=== PATIENT | male | born 1965 | race Caucasian/White ===

== ENCOUNTER 2017-07-14 21:45 | Emergency (ER) | payer OTHER ==
[~2017-07-14] VITALS: Ht 177.8 cm; Wt 79.4 kg
[~2017-07-14 21:45] MED LIST: CEPHALEXIN500 MG ORAL; CLINDAMYCIN HC300 MG ORAL; ERYTHROMYCIN1 G1 LEFT EYE; FENOFIBRATE 13134 MG ORAL; HYDROCHLOROTHIA25 MG ORAL; KLONOPIN1 MG ORAL
[2017-07-14] MEDS ORDERED: Morphine Sulfate 4mg/ml Inj IVP ONE (22:00)
--- NOTE | 2017-07-14 22:03 | Emergency Room Report ---
History of Present Illness General Chief Complaint: Abdominal Pain Source: Patient Present Illness HPI Is a 52-year-old male with a history of anxiety and mitral valve prolapse. He presents with chief complaint of acute onset of left flank pain. Onset yesterday afternoon. Pain was severe. Radiate to the left lower caught her and area. Has nausea initially. No vomiting. It went away but now came back. Has urinary frequency and cloudiness. No hematuria. Some is symptom a few years ago but never went to a doctor. No family history of kidney stone. Pain is 9/10. The demented better. Nothing made it worse. Allergies: Coded Allergies: SULFA (SULFONAMIDE ANTIBIOTICS) (Verified Allergy, Unknown, 07/14/17) Uncoded Allergies: SULFA (Allergy, Unknown, 05/12/15) Patient History Past Medical History: see triage record, old chart reviewed, psych hx Past Surgical History: other Pertinent Family History: none Social History: Denies: smoking Immunizations: other Reviewed Nursing Documentation: PMH: Agreed, PSxH: Agreed Nursing Documentation-PMH Hx Cardiac Problems: Yes - Rheumatic mitral valve disease Hx Hypertension: Yes - Heart valve problem Review of Systems Eye: Denies: eye pain, blurred vision ENT: Denies: ear pain, nose congestion, throat swelling Respiratory: Denies: cough, shortness of breath Cardiovascular: Denies: chest pain, palpitations Gastrointestinal: Reports: abdominal pain, nausea, Denies: diarrhea, vomiting Musculoskeletal: Denies: back pain, joint pain Skin: Denies: rash Neurological: Denies: headache, numbness Endocrine: Denies: increased thirst, increased urine Hematologic/Lymphatic: Denies: easy bruising All Other Systems: negative except mentioned in HPI Physical Exam Vital Signs Date Time Temp Pulse Resp B/P (MAP) Pulse Ox O2 Delivery O2 Flow Rate FiO2 07/14/17 21:50 98.6 134 18 178/105 98 Room Air vitals with tachycardia and high blood pressure Sp02 EP Interpretation: reviewed, normal General Appearance: well appearing, no apparent distress, alert Head: normocephalic, atraumatic Eyes: bilateral eye PERRL, bilateral eye EOMI ENT: hearing grossly normal, normal pharynx Neck: full range of motion, supple, no meningismus Respiratory: chest non-tender, lungs clear, normal breath sounds Cardiovascular #1: regular rate, rhythm, no murmur, systolic murmur Gastrointestinal: normal bowel sounds, no mass, no organomegaly, no bruit, non- distended, tenderness - Mild left low quadrant Musculoskeletal: back normal, gait/station normal, normal range of motion Psychiatric: anxious Skin: warm/dry Medical Decision Making Diagnostic Impression: Primary Impression: Ureteral stone with hydronephrosis ER Course Patient presents with kidney stone at the UVJ junction. Because of the perinephric stranding, we'll put on antibiotics. No evidence of sepsis. No evidence of acute abdomen. Pain well controlled now. CT/MRI/US Diagnostic Results CT/MRI/US Diagnostic Results : Imaging Test Ordered: CT abdomen and pelvis Impression Read by radiologist. 4 mm obstructing left UVJ stone with mild hydronephrosis and perinephric stranding. Last Vital Signs Date Time Temp Pulse Resp B/P (MAP) Pulse Ox O2 Delivery O2 Flow Rate FiO2 07/14/17 21:50 98.6 134 18 178/105 98 Room Air Status: improved Disposition: HOME, SELF-CARE Condition: Stable Scripts Tamsulosin Hcl (TAMSULOSIN HCL*) 0.4 Mg Cap.er.24h 0.4 MG ORAL BEDTIME, #14 CAP Prov: WEN FLORES M.D. 07/14/17 Cephalexin* (KEFLEX*) 500 Mg Capsule 500 MG ORAL TID, #21 CAP 0 Refills Prov: WEN FLORES M.D. 07/14/17 Hydrocodone/Acetaminophen 5-325* (HYDROCODONE/ACETAMINOPHEN 5-325*) 1 Each Tablet 1 TAB ORAL Q6H Y for For Pain, #30 TAB 0 Refills Prov: WEN FLORES M.D. 07/14/17 Additional Instructions: Followup with your DrMars for referral to see a urologist. Followup in a week. Return if symptom worsen. WEN FLORES M.D. Jul 14, 2017 22:03
[2017-07-14 22:31] LABS: APPEARANCE,URINE SLIGHTLY CLOUDY; COLOR,URINE AMBER; GLUCOSE, URINE (UA) NEGATIVE (NEGATIVE); KETONES,URINE NEGATIVE (NEGATIVE); PROTEIN,URINE 3+ (NEGATIVE)
[2017-07-14 22:32] LABS: BILIRUBIN, URINE NEGATIVE (NEGATIVE); LEUKOCYTE ESTERASE ,URINE NEGATIVE (NEGATIVE); NITRITE,URINE NEGATIVE (NEGATIVE); UROBILINOGEN,URINE NORMAL MG/DL (0.0-1.0)
[2017-07-14 22:32] LABS: ANION GAP 11 mmol/L (5-15); BASOPHILS % (AUTO) 0.6 % (0.0-2.0); BLOOD UREA NITROGEN 25 mg/dL (7-18); CALCIUM 9.1 MG/DL (8.5-10.1); CARBON DIOXIDE 25 MMOL/L (21-32); CHLORIDE 104 MMOL/L (98-107); CREATININE 2.1 MG/DL (0.55-1.30); EOSINOPHILS % (AUTO) 0.3 % (0.0-3.0); HEMATOCRIT 49.4 % (42.0-52.0); HEMOGLOBIN 16.7 G/DL (14.2-18.0); LYMPHOCYTES % (AUTO) 9.6 % (20.0-45.0); MEAN CORPUSCULAR VOLUME 88 FL (80-99); MONOCYTES % (AUTO) 8.1 % (1.0-10.0); NEUTROPHILS % (AUTO) 81.4 % (45.0-75.0); PLATELET COUNT 205 K/UL (150-450); POTASSIUM 3.8 MMOL/L (3.5-5.1); RED BLOOD COUNT 5.61 M/UL (4.70-6.10); RED CELL DISTRIBUTION WIDTH 11.6 % (11.6-14.8); SODIUM 140 MMOL/L (136-145); WHITE BLOOD COUNT 12.5 K/UL (4.8-10.8)
[2017-07-14] MEDS ORDERED: cefTRIAXone 1 GM in NS 55 ML IVPB ONE (23:15)
[2017-07-14] MEDS ORDERED: TAMSULOSIN HCL0.4 MG ORAL (23:21)
[2017-07-14] MEDS ORDERED: KEFLEX500 MG ORAL (23:21)
[2017-07-14] MEDS ORDERED: HYDROCODON-ACE1 EA15 ORAL (23:21)
[2017-07-15 00:18] VITALS: BP 128/66
[2017-07-15 00:19] VITALS: BP 128/66
--- NOTE | 2017-07-15 12:12 | Diagnostic Imaging Report ---
Indication: Left flank pain Technique: CT of the abdomen and pelvis utilizing automated exposure control without intravenous or oral contrast. CT dose: Total DLP 726.71 mGycm; CTDI vol 12.1 mGy Comparison: None Findings: Please note that evaluation of the abdominal and pelvic viscera is limited without the use of intravenous and oral contrast. Within these limitations, the following observations are made: Dependent atelectasis noted in the lung bases. Heart is borderline enlarged. There is trace pericardial fluid. There is diffusely decreased hepatic attenuation likely reflective of hepatic steatosis. No focal liver lesion is appreciated on this noncontrast study. Liver contour appears smooth. Possible layering sludge in the gallbladder. Spleen, adrenal glands and pancreas are grossly unremarkable. A 3 mm stone at the left ureterovesicular junction results in mild left-sided hydroureteronephrosis and left-sided perinephric stranding. No urinary tract stone or hydronephrosis seen on the right. The bladder is decompressed with bladder wall thickening likely related to underdistention. There is no bowel obstruction. No abnormal bowel wall thickening or perienteric inflammatory change. No free intraperitoneal air. Appendix is normal. Abdominal aorta normal in caliber. No pathologically enlarged lymphadenopathy. There are degenerative changes in the spine. No acute osseous abnormality is seen. There is a tiny fat-containing umbilical hernia. IMPRESSION: 3 mm stone at the left ureterovesicular junction resulting in mild left-sided hydroureteronephrosis and left-sided perinephric stranding. Underdistention versus thickening of the bladder wall. Correlate with urinalysis. Hepatic steatosis. Questionable gallbladder sludge. Consider dedicated ultrasound for better evaluation as clinically indicated. Additional findings as above. This corresponds with the statrad preliminary report. The CT scanner at [facility] is accredited by the [employer] and the scans are performed using protocols designed to limit radiation exposure to as low as reasonably achievable to attain images of sufficient resolution adequate for diagnostic evaluation.
== END 2017-07-15 00:20 | disposition home or self-care (01) ==
LOC: EMR 22:12
DX: N13.2 Hydronephrosis with renal and ureteral calculous obstruction (principal); K76.0 Fatty (change of) liver, not elsewhere classified; Z88.2 Allergy status to sulfonamides; I10 Essential (primary) hypertension; I05.8 Other rheumatic mitral valve diseases
CPT/HCPCS: 36415; 74176; 80048; 81003; 85025; 96361; 96365; 96375; 99284; J0696; J2270; J2405

== ENCOUNTER 2018-08-19 02:26 | Emergency (ER) | payer OTHER ==
[~2018-08-19] VITALS: Ht 175.3 cm; Wt 79.4 kg
[~2018-08-19 02:26] MED LIST changes: +HYDROCODON-ACE1 EA15 ORAL; +KEFLEX500 MG ORAL; +TAMSULOSIN HCL0.4 MG ORAL
[2018-08-19 02:30] VITALS: BP 138/89
--- NOTE | 2018-08-19 02:30 | NUR ---
ED Nurse Note: Patient walked into ED c/o "really bad cough" that has been going on for 1 week now. Patient presents with 100.7 temp at triage
[2018-08-19] MEDS ORDERED: GUAIFENESIN-CO118 M1 ORAL (03:49)
[2018-08-19] MEDS ORDERED: AMOXICILLIN500 MG ORAL (03:49)
[2018-08-19] MEDS ORDERED: Albuterol/Ipratropium 3ml neb HHN ONE (04:45)
[2018-08-19 05:00] VITALS: BP 138/89
--- NOTE | 2018-08-19 05:00 | NUR ---
ED Nurse Note: Patient cleared cleared for discharge per ERMD. AO4. NAD. VSS. Patient given prescriptions and discharge instructions; verbalized understanding. ID removed. Patient ambulated steady out of ED with all belongings.
--- NOTE | 2018-08-19 11:12 | Diagnostic Imaging Report ---
Indication: Shortness of breath Technique: One view of the chest Comparison: none Findings: Heart is enlarged. The lungs and pleural spaces are clear. Impression: Cardiomegaly. No acute process
--- NOTE | 2018-08-23 16:07 | Emergency Room Report ---
History of Present Illness General Chief Complaint: Upper Respiratory Illness Source: Patient Present Illness HPI Patient is a 53-year-old male brings presented for increased cough and congestion. Patient had been having having increased nasal congestion associated with nonproductive cough. Patient denies any fever. He reports having prior history of bronchitis. Patient reports having some low-grade temperature. Allergies: Coded Allergies: SULFA (SULFONAMIDE ANTIBIOTICS) (Verified Allergy, Unknown, 07/14/17) Uncoded Allergies: SULFA (Allergy, Unknown, 05/12/15) Patient History Past Medical History: see triage record Reviewed Nursing Documentation: PMH: Agreed; PSxH: Agreed Nursing Documentation-PMH Past Medical History: No History, Except For Hx Cardiac Problems: Yes - Rheumatic mitral valve disease Hx Hypertension: Yes - Heart valve problem Review of Systems All Other Systems: negative except mentioned in HPI Physical Exam General Appearance: well appearing, no apparent distress, alert, GCS 15 Head: normocephalic, atraumatic ENT: hearing grossly normal, normal voice Neck: full range of motion, supple Respiratory: lungs clear, no respiratory distress, speaking full sentences Cardiovascular #1: normal inspection, regular rate, rhythm, no edema, no gallop Gastrointestinal: normal inspection Musculoskeletal: normal inspection, back normal, no calf tenderness Neurologic: normal gait Psychiatric: mood/affect normal Skin: no rash Medical Decision Making Diagnostic Impression: Primary Impression: Viral upper respiratory infection ER Course Patient presented for cough. Differential diagnosis include was not limited to bronchitis, pneumonia, asthma exacerbation among others. Patient has a benign exam and does not appear to require laboratory testing at this time. Patient was given a breathing treatment.Patient given medication for symptomatic treatment.Influenza study was noted to be negative. Patient was given prescription for amoxicillin due to dental infection and prior history of valvular heart disease. Patient was given prescription for medications for cough. He was advised to recheck with his primary care physician in 1-2 days. Status: improved Disposition: HOME, SELF-CARE Condition: Stable Scripts Guaifenesin/Codeine Phos* (ROBITUSSIN AC*) 118 Ml Liquid 1 TSP ORAL Q6H PRN for For Cough, #118 ML 0 Refills Prov: New Gonzalez MD 08/19/18 Amoxicillin* (AMOXIL*) 500 Mg Capsule 500 MG ORAL THREE TIMES A DAY, #21 CAP Prov: New Gonzalez MD 08/19/18 Patient Instructions: Cough, Adult New Gonzalez MD Aug 23, 2018 16:07
== END 2018-08-19 05:00 | disposition home or self-care (01) ==
LOC: EMR 03:15
DX: J06.9 Acute upper respiratory infection, unspecified (principal); B34.9 Viral infection, unspecified; Z88.2 Allergy status to sulfonamides
CPT/HCPCS: 71045; 86710; 94640; 99284; J7620

== ENCOUNTER 2018-08-23 23:01 | Emergency (ER) | payer OTHER ==
[~2018-08-23] VITALS: Ht 175.3 cm; Wt 79.4 kg
[~2018-08-23 23:01] MED LIST changes: +AMOXICILLIN500 MG ORAL; +GUAIFENESIN-CO118 M1 ORAL
--- NOTE | 2018-08-23 23:16 | NUR ---
ED Nurse Note: pt came to ed from home c/o of cough, per pt he was her 08/19/18, and has recurring symptoms pt wants to follow up pt has pain on ribs due to coughing
[2018-08-23 23:21] VITALS: BP 126/86
[2018-08-23] MEDS ORDERED: PREDNISONE20 MG ORAL (23:29)
[2018-08-23] MEDS ORDERED: PROMETHAZINE-C118 M1 ORAL (23:29)
[2018-08-23] MEDS ORDERED: ALBUTEROL SULF8.5 GM INH (23:29)
[2018-08-23 23:35] VITALS: BP 126/86
--- NOTE | 2018-08-23 23:35 | NUR ---
ER DISCHARGE NOTE: Patient is cleared to be discharged per ERMD, pt is aox4, on room air, with stable vital signs. pt was given dc and prescription instructions, pt was able to verbalize understanding, pt id band removed. pt is able to ambulate with steady gait. pt took all belongings.
--- NOTE | 2018-08-24 00:49 | Emergency Room Report ---
History of Present Illness General Chief Complaint: Upper Respiratory Illness Source: Patient Present Illness HPI 53-year-old male presents ED for evaluation. Patient is complaining of cough and congestion. States he was seen here on 08/19 with same problem. Was discharged with antibiotics and cough medication. States that his cough is persisting. Now notes whitish phlegm. Denies fevers or chills. Denies smoking. Notes prior history of bronchitis. Denies sick contacts or recent travel. No other aggravating relieving factors. Denies any other associated symptoms Allergies: Coded Allergies: SULFA (SULFONAMIDE ANTIBIOTICS) (Verified Allergy, Unknown, 07/14/17) Uncoded Allergies: SULFA (Allergy, Unknown, 05/12/15) Patient History Past Medical History: CAD, psych hx Past Surgical History: none Pertinent Family History: none Social History: Denies: smoking, alcohol use, drug use Immunizations: UTD Reviewed Nursing Documentation: PMH: Agreed; PSxH: Agreed Nursing Documentation-PMH Hx Cardiac Problems: Yes - Rheumatic mitral valve disease Hx Hypertension: Yes - Heart valve problem History Of Psychiatric Problem: Yes - panic disorder Review of Systems All Other Systems: negative except mentioned in HPI Physical Exam Vital Signs Date Time Temp Pulse Resp B/P (MAP) Pulse Ox O2 Delivery O2 Flow Rate FiO2 08/23/18 23:09 98.2 81 16 126/86 96 Room Air Sp02 EP Interpretation: reviewed, normal General Appearance: no apparent distress, alert, GCS 15, non-toxic Head: normocephalic, atraumatic Eyes: bilateral eye normal inspection, bilateral eye PERRL ENT: hearing grossly normal, normal pharynx, no angioedema, normal voice Neck: full range of motion, supple/symm/no masses Respiratory: chest non-tender, lungs clear, normal breath sounds, speaking full sentences Cardiovascular #1: regular rate, rhythm, no edema Cardiovascular #2: 2+ carotid (R), 2+ carotid (L), 2+ radial (R), 2+ radial (L) , 2+ dorsalis pedis (R), 2+ dorsalis pedis (L) Gastrointestinal: normal bowel sounds, non tender, soft, non-distended, no guarding, no rebound Rectal: deferred Genitourinary: normal inspection, no CVA tenderness Musculoskeletal: back normal, gait/station normal, normal range of motion, non- tender Neurologic: alert, oriented x3, responsive, motor strength/tone normal, sensory intact, speech normal Psychiatric: judgement/insight normal, memory normal, mood/affect normal, no suicidal/homicidal ideation Reflexes: 3+ bicep (R), 3+ bicep (L), 3+ tricep (R), 3+ tricep (L), 3+ knee (R) , 3+ knee (L) Skin: normal color, no rash, warm/dry, well hydrated Lymphatic: no adenopathy Medical Decision Making Diagnostic Impression: Primary Impression: Bronchitis ER Course Hospital Course 53-year-old male presents to ED complaining of cough, congestion. seen here on for same thing Differential diagnoses include: URI, pharyngitis, otitis media, asthma Clinical course Patient placed on stretcher. After initial history, physical exam reveals a middle aged male in no acute distress. Bilateral TM unremarkable. No pharyngeal erythema. No tonsillar exudates. No lymphadenopathy. lungs clear. abdomen soft. Afebrile. Nontoxic appearing. I suspect bronchitis. Patient had been prescribed amoxicillin for a tooth infection. I explained to the patient that he could theoretically benefit if there was a suspicion for atypical pneumonia Explained to the patient that he needs to continue the antibiotics as prescribed. We'll add an inhaler, steroids. We'll change cough medications to promethazine with codeine Safe for discharge or close outpatient follow-up. We'll provide referrals Diagnosis - bronchitis Stable and discharged home with Rx albuterol, prednisone, proemthazine/codeine. Continue amoxicillin as prescribed. Instructed to followup with PMD. Return to ED if symptoms recur or worsen Last Vital Signs Date Time Temp Pulse Resp B/P (MAP) Pulse Ox O2 Delivery O2 Flow Rate FiO2 08/23/18 23:35 98.2 81 16 126/86 96 Room Air Status: improved Disposition: HOME, SELF-CARE Condition: Stable Scripts Codeine/Promethazine Hcl* (PROMETHAZINE-CODEINE SYRUP*) 118 Ml Syrup 5 ML ORAL Q6H PRN for For Cough, #118 ML 0 Refills Prov: Jesus Kramer MD 08/23/18 Albuterol Sulfate* (ALBUTEROL SULFATE MDI*) 8.5 Gm Hfa.aer.ad 2 PUFF INH Q6H, #1 EA 0 Refills Prov: Jesus Kramer MD 08/23/18 Prednisone* (PREDNISONE*) 20 Mg Tablet 40 MG ORAL DAILY, #10 TAB Prov: Jesus Kramer MD 08/23/18 Referrals: DAKOTA PATTON,REFERRING (PCP) [facility] Patient Instructions: Acute Bronchitis, [id number] Additional Instructions: discontinue robitussin, start promethazine with codeine for your cough Jesus Kramer MD Aug 24, 2018 00:49
== END 2018-08-23 23:55 | disposition home or self-care (01) ==
LOC: EMR 23:52
DX: J40 Bronchitis, not specified as acute or chronic (principal); I05.9 Rheumatic mitral valve disease, unspecified
CPT/HCPCS: 99283

== ENCOUNTER 2020-04-02 06:32 | Emergency (ER) | payer OTHER ==
[~2020-04-02] VITALS: Ht 175.3 cm; Wt 79.4 kg
[~2020-04-02 06:32] MED LIST changes: +ALBUTEROL SULF8.5 GM INH; +PREDNISONE20 MG ORAL; +PROMETHAZINE-C118 M1 ORAL
[2020-04-02 06:51] VITALS: BP 140/97
--- NOTE | 2020-04-02 06:51 | NUR ---
ED Nurse Note: pt walked into ED from home c/o right eye pain and redness that started a few days ago, pt reports history of styes and eye infection. Pt denies blurry vision, trauma to the eye, or debri getting into eye.
[2020-04-02] MEDS ORDERED: ERYTHROMYCIN3.5 GM RIGHT EYE (06:59)
[2020-04-02] MEDS ORDERED: HYDROcodone/Acetamin 5/325 tab ORAL ONE (07:00)
--- NOTE | 2020-04-02 07:05 | Emergency Room Report ---
History of Present Illness General Chief Complaint: Eye Problems Source: Patient Present Illness HPI Patient is a 55-year-old male past medical history of anxiety and mitral valve regurgitation who presents to the ER complaining of a stye to his right eye. Patient states that he noticed the redness and swelling to his right lower eyelid several days ago. He states that he is a history of a stye to that area. He states that he used some Cipro eyedrops that he had from his prior infection. He denies any fever or chills. He denies any chest pain or shortness of breath. Patient also complains of chronic pain and is requesting pain medication until he can see his pain specialist. Patient states that this is chronic pain that he has throughout his body and is unchanged from baseline. I explained to him that I did not feel comfortable refilling narcotic pain medications due to the fact that he has a pain specialist but could give him 1 [place] in the emergency room. He seemed agreeable to that. 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 Patient History Reviewed Nursing Documentation: PMH: Agreed; PSxH: Agreed Nursing Documentation-PMH Hx Cardiac Problems: Yes - Rheumatic mitral valve disease Hx Hypertension: Yes - Heart valve problem Review of Systems All Other Systems: negative except mentioned in HPI Physical Exam Vital Signs Date Time Temp Pulse Resp B/P (MAP) Pulse Ox O2 Delivery O2 Flow Rate FiO2 04/02/20 06:46 98.4 82 16 140/97 (111) 98 Room Air Sp02 EP Interpretation: reviewed, normal General Appearance: no apparent distress, alert, GCS 15, non-toxic Head: normocephalic, atraumatic Eyes: right eye lid inflammation; bilateral eye PERRL ENT: hearing grossly normal, normal pharynx, no angioedema, normal voice Neck: full range of motion, supple/symm/no masses Respiratory: chest non-tender, lungs clear, no respiratory distress Cardiovascular #1: regular rate, rhythm Gastrointestinal: non tender, soft Rectal: deferred Musculoskeletal: normal range of motion 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 I have explained that their evaluation and treatment in the emergency department today is an important step towards them achieving better health but that their evaluation today is not intended to replace further evaluation and treatment by a physician in their local clinic. I have explained that while the current findings suggest no immediate life threatening emergency they will require further evaluation and treatment by a physician of their choice in their area. They understand that it will be necessary for them to review the final reports of their ED visit with their clinic physician. We have reviewed indications for return to the Emergency Department. I have explained that additional time may need to pass and/or additional testing as an outpatient may be necessary before a definitive diagnosis can be made. They tell me they are willing to follow up as instructed within the timeframe I recommend. They appear to understand what we discussed. Additionally they understand that if they are unable to be seen by an outpatient physician they are welcome, and in fact should, return to the Emergency Department for a repeat evaluation. The patient is stable at time of discharge. Last Vital Signs Date Time Temp Pulse Resp B/P (MAP) Pulse Ox O2 Delivery O2 Flow Rate FiO2 04/02/20 06:51 98.4 68 16 140/97 98 Room Air Disposition: HOME, SELF-CARE Condition: Stable Scripts Erythromycin Base (ERYTHROMYCIN*) 3.5 Gm Oint...g. 1 APPLIC RIGHT EYE 6 times per day for 10 Days, #3.5 GM 0 Refills Prov: Juhi Cancino M.D. 04/02/20 Referrals: [facility] Talia Asher [facility] Patient Instructions: Camilo Additional Instructions: The patient was provided with discharge instructions, notified to follow-up with a primary care doctor and or specialist in the next 24-48 hours, and to return to the ED if they have worsening of their symptoms. Please note that this report is being documented using [employer] technology. This can lead to erroneous entry secondary to incorrect interpretation by the dictating instrument. Juhi Cancino M.D. Apr 02, 2020 07:05
[2020-04-02 07:15] VITALS: BP 135/90
== END 2020-04-02 07:15 | disposition home or self-care (01) ==
LOC: EMR 06:59
DX: H00.013 Hordeolum externum right eye, unspecified eyelid (principal); G89.29 Other chronic pain; I10 Essential (primary) hypertension; F41.9 Anxiety disorder, unspecified; Z88.2 Allergy status to sulfonamides
CPT/HCPCS: 99282

== ENCOUNTER 2020-04-09 19:52 | Emergency (ER) | payer OTHER ==
[~2020-04-09] VITALS: Ht 175.3 cm; Wt 79.4 kg
[~2020-04-09 19:52] MED LIST changes: +ERYTHROMYCIN3.5 GM RIGHT EYE
[2020-04-09 20:00] VITALS: BP 122/97
--- NOTE | 2020-04-09 20:00 | NUR ---
ED Nurse Note: Patient walked in from home d/t style on his right eye, patient states he was seen at [facility] 7 days ago for the stye and it "worsened". Redness noted, no drainage present. Patient aao x 4 and ambulatory with steady gait. No acute distress noted.
[2020-04-09] MEDS ORDERED: CIPROFLOXACIN2.5 ML OP ×2 (20:14→20:16)
[2020-04-09 20:19] VITALS: BP 127/89
--- NOTE | 2020-04-09 20:19 | NUR ---
ER DISCHARGE NOTE: Patient is cleared to be discharged per ERMD, pt is aox4, on room air, with stable vital signs. pt was given dc and prescription instructions, pt was able to verbalize understanding, pt id band removed. pt is able to ambulate with steady gait. pt took all belongings. pt stable upon discharge.
--- NOTE | 2020-04-10 11:30 | Emergency Room Report ---
History of Present Illness General Chief Complaint: Skin Rash/Abscess Source: Patient Present Illness HPI 55-year-old male here with thigh of right lower eyelid. Patient was here 7 days ago with the same complaint. Patient says that he has recurrent styes in the same location on the right lower eyelid, has suffered with this multiple times in the past. Patient says that he is usually treated with ciprofloxacin eyedrops. Patient was here 7 days ago with the same complaint. He was given prescription for erythromycin ointment and he has been noncompliant with using this as directed. He is here saying that he would rather use the ciprofloxacin eyedrops. No other complaints. 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 No eye involvement. Normal extraocular movements without any elicited eye pain. No enophthalmos or exophthalmos. No conjunctival involvement ENT: hearing grossly normal, normal pharynx, no angioedema, normal voice Neck: full range of motion, supple/symm/no masses Respiratory: chest non-tender, lungs clear, normal breath sounds, speaking full sentences Cardiovascular #1: regular rate, rhythm, no edema Cardiovascular #2: 2+ carotid (R), 2+ carotid (L), 2+ radial (R), 2+ radial (L), 2+ dorsalis pedis (R), 2+ dorsalis pedis (L) Gastrointestinal: normal bowel sounds, non tender, soft, non-distended, no guarding, no rebound Rectal: deferred Genitourinary: normal inspection, no CVA tenderness Musculoskeletal: back normal, normal range of motion, calf tenderness, gait/station normal, non-tender Neurologic: alert, motor strength/tone normal, oriented x3, sensory intact, responsive, speech normal Psychiatric: judgement/insight normal, memory normal, mood/affect normal, no suicidal/homicidal ideation Reflexes: 3+ bicep (R), 3+ bicep (L), 3+ tricep (R), 3+ tricep (L), 3+ knee (R), 3+ knee (L) Lymphatic: no adenopathy Medical Decision Making Diagnostic Impression: Primary Impression: Hordeolum eyelid ER Course 55-year-old male here requesting ciprofloxacin eyedrops for recurrent right lower eyelid stye. Patient was here 7 days ago and was given a prescription for erythromycin ointment which she has not been using as directed. There was no evidence of septal or preseptal cellulitis, eye involvement, eye injury. Patient had normal extraocular movements, pupils were equal and reactive, and he had normal visual acuity. He was given a prescription for ciprofloxacin eyedrops and told to use as directed. He will follow-up with a primary care provider. Discharged in good condition. Last Vital Signs Date Time Temp Pulse Resp B/P (MAP) Pulse Ox O2 Delivery O2 Flow Rate FiO2 04/09/20 20:19 97.2 72 18 127/89 99 Room Air Disposition: HOME, SELF-CARE Condition: Stable Scripts Ciprofloxacin Hcl (CIPROFLOXACIN HCL) 2.5 Ml Drops 1 DROP OP TID for 5 Days, ML Prov: Ward Crowell M.D. 04/09/20 Referrals: DAKOTA PATTON,REFERRING (PCP) [facility] Talia Coffman [facility] Patient Instructions: Ward Elias M.D. Apr 10, 2020 11:30
== END 2020-04-09 20:19 | disposition home or self-care (01) ==
LOC: EMR 20:11
DX: H00.012 Hordeolum externum right lower eyelid (principal); Z88.2 Allergy status to sulfonamides; I05.9 Rheumatic mitral valve disease, unspecified; I10 Essential (primary) hypertension; Z91.14 Patient's other noncompliance with medication regimen
CPT/HCPCS: 99282